=== PATIENT | male | born 1970 | race Hispanic/Latino ===

== ENCOUNTER 2016-07-30 00:10 | Emergency (ER) | payer OTHER ==
[2016-07-30 01:15] VITALS: BP 160/83; PULSE 67; RESP 18; TEMP 98.7; O2SAT 99
[2016-07-30 01:31] VITALS: BMI 36.2
--- NOTE | 2016-07-30 01:42 | ED PDOC ---
Arrival/HPI - General Chief Complaint: Finger,Hand,&Wrist Time Seen by Provider: 07/30/16 01:34 Historian: Patient - History of Present Illness Narrative History of Present Illness (Text): 07/30/16 01:41 Patrick Bonds is a 46 year old male who presents to the Emergency department status post left 2nd finger injury 2-3 hours prior to arrival. Patient states he accidentally hit his left 2nd finger with a hammer at home tonight and is now experiencing pain and bruising to the area. Patient denies any numbness/ weakness/tingling in the extremity, other injury/trauma, or any other complaints. 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) Symptom Onset: Gradual Symptom Course: Unchanged Activities at Onset: Light Context: Home Past Medical History - Provider Review Nursing Documentation Reviewed: Yes - Psychiatric Hx Substance Use: No - Anesthesia Hx Anesthesia: Yes Hx Anesthesia Reactions: No Hx Malignant Hyperthermia: No Family/Social History - Physician Review Nursing Documentation Reviewed: Yes Family/Social History: No Known Family HX Smoking Status: Never Smoked Hx Alcohol Use: Yes Frequency of alcohol use: Socially Hx Substance Use: No Allergies/Home Meds Allergies/Adverse Reactions: Allergies No Known Allergies Allergy (Verified 07/30/16 01:15) Home Medications: Home Meds Medication Instructions Recorded Confirmed No Known Home Med 07/30/16 07/30/16 Review of Systems - Physician Review All systems were reviewed & negative as marked: Yes - Review of Systems Constitutional: Normal Musculoskeletal: Other (+left 2nd digit pain and bruising). absent: Back Pain, Neck Pain Neurological: Normal. absent: Headache, Dizziness Physical Exam Vital Signs Reviewed: Yes Vital Signs Temp Pulse Resp BP Pulse Ox 07/30/16 01:15 98.7 F 67 18 160/83 H 99 Temperature: Afebrile Blood Pressure: Normal Pulse: Regular Respiratory Rate: Normal Appearance: Positive for: Well-Appearing, Non-Toxic, Comfortable Pain Distress: None Mental Status: Positive for: Alert and Oriented X 3 - Systems Exam Head: Present: Atraumatic, Normocephalic Pupils: Present: PERRL Extroacular Muscles: Present: EOMI Conjunctiva: Present: Normal Upper Extremity: Present: Normal ROM, NORMAL PULSES, Neurovascularly Intact, Capillary Refill < 2s, Other (Superficial abrasion to distal left 2nd digit with bruising to volar pad). No: Cyanosis, Edema, Swelling, Erythema, Temperature Abnormalties Neurological: Present: GCS=15, CN II-XII Intact, Speech Normal Skin: Present: Warm, Dry, Normal Color. 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 Differential Diagnosis include but are not limited to: fracture vs. contusion Plan: -- XR Left Hand 2nd Digit -- Reassess and disposition Progress Notes: 07/30/16 04:43 Reviewed radiology, XR Left Hand shows non-displaced fracture of distal 2nd phalanx. Pt is no acute distress. Placed in finger splint. 07/30/16 04:47 On re-evaluation, the patient feels better and is in no acute distress. I have discussed the results and plan with the patient, who expresses understanding. Patient in agreement with plan to discharged home. Patient is stable for discharge. Patient was instructed to follow up with physician/orthopedist/ clinic in 1-2 days or return if symptoms worsen or new concerning symptoms arise. - RAD Interpretation Radiology Orders: 07/30/16 01:55 HAND LEFT 2ND DIGIT (FINGER) [RAD] Stat Track Equipment Operator: ED Physician - Scribe Statement The provider has reviewed the documentation as recorded by the Scribe Danay Joshi All medical record entries made by the Scribe were at my direction and personally dictated by me. I have reviewed the chart and agree that the record accurately reflects my personal performance of the history, physical exam, medical decision making, and the department course for this patient. I have also personally directed, reviewed, and agree with the discharge instructions and disposition. Disposition/Present on Arrival - Present on Arrival Any Indicators Present on Arrival: No History of DVT/PE: No History of Uncontrolled Diabetes: No Urinary Catheter: No History of Decub. Ulcer: No History Surgical Site Infection Following: CABG - Mediastinitis, None - Disposition Have Diagnosis and Disposition been Completed?: Yes Diagnosis: Finger fracture Disposition: HOME/ ROUTINE Disposition Time: 04:47 Patient Plan: Discharge Patient Problems: Current Active Problems Problem Status Onset Finger fracture Acute Condition: STABLE Discharge Instructions (ExitCare): Finger Fracture (ED) Additional Instructions: Maintain finger splint/advil as directed/follow up with the orthopedist this week Referrals: Cong Lloyd III, MD [Medical Doctor] - Follow up with primary
--- NOTE | 2016-07-30 09:03 | RAD ---
PROCEDURE: Left Index finger radiographs. HISTORY: injury COMPARISON: None available. TECHNIQUE: AP radiograph of the left hand, as well as spot oblique and lateral images of index finger were obtained. FINDINGS: LEFT INDEX FINGER: Left 2nd digit demonstrates comminuted fracture extending vertically 3 from the distal tuft all the way to the intra-articular surface. Remainder of the left hand (as seen on the AP view) grossly intact. JOINTS: No dislocation. SOFT TISSUES: Soft tissue swelling. No evidence of radiopaque foreign body. OTHER FINDINGS: None. IMPRESSION: Acute comminuted, nondisplaced, and intra-articular fracture deformity of the distal 2nd digit as above with associated soft tissue swelling. Study has been marked for PA review.
== END 2016-07-30 04:50 | disposition home or self-care (01) ==
LOC: ED 00:10
DX: S62.661A Nondisplaced fracture of distal phalanx of left index finger, initial encounter for closed fracture (principal); W22.8XXA Striking against or struck by other objects, initial encounter; Y93.89 Activity, other specified; Y92.009 Unspecified place in unspecified non-institutional (private) residence as the place of occurrence of the external cause